=== PATIENT | female | born 1985 | race Caucasian/White ===

== ENCOUNTER 2019-05-25 07:11 | Day surgery (SDC) | payer OTHER ==
[~2019-05-25 07:11] MED LIST: SOD CHLORIDE 0.9% 1,000 ML IV
[2019-05-25] MEDS ORDERED: FENTAnyl 50 MCG/ML VIAL (08:29)
[2019-05-25] MEDS ORDERED: PROPOFOL 20 ML (08:29)
[2019-05-25] MEDS ORDERED: LIDOCAINE 2% (SDV) 5 ML INJ (08:29)
[2019-05-25] MEDS ORDERED: CEFAZOLIN 1 GM INJ (08:29)
[2019-05-25] MEDS ORDERED: MIDAZOLAM 1 MG/ML 2 ML INJ (08:29)
[2019-05-25] MEDS ORDERED: SUCCINYLCHOLINE CHLORIDE 100 MG/5 ML SYG IV (08:29)
[2019-05-25] MEDS ORDERED: HYDROmorphONE 1 MG/5 ML IV SYRINGE IV ×3 (08:30)
[2019-05-25] MEDS ORDERED: ONDANSETRON 4 MG INJ IV (08:30)
[2019-05-25] MEDS ORDERED: OXYCODONE/ACETAMINOPHEN (5/325) TAB PO ×2 (08:30)
[2019-05-25] MEDS: CEFAZOLIN 2 GM/50 ML (PMX) 50 ML IVPB (09:15)
[2019-05-25] MEDS ORDERED: METOCLOPRAMIDE 10 MG INJ (09:24)
[2019-05-25] MEDS ORDERED: DEXAMETHASONE 4 MG/ML 5 ML INJ (09:24)
[2019-05-25] MEDS ORDERED: FAMOTIDINE 20 MG INJ (09:24)
[2019-05-25] MEDS ORDERED: ONDANSETRON 4 MG INJ (09:24)
[2019-05-25] MEDS: BUPIVACAINE 0.5%/EPI (SDV) 30 ML INJ (10:00)
[2019-05-25] MEDS: LACTATED RINGER'S 1,000 ML IV (10:15)
[2019-05-25] MEDS: MEPERIDINE 25 MG INJ IV (10:17)
[2019-05-25] MEDS ORDERED: ACETAMINOPHEN 325 MG TAB PO (10:30)
[2019-05-25] MEDS: SOD CHLORIDE 0.9% 500 ML IV (11:24)
[2019-05-25] MEDS: EPHEDrine 25 MG/5 ML SYG IV (11:25)
== END 2019-05-25 12:44 | disposition home or self-care (01) ==
LOC: SDS 07:11
DX: D21.21 Benign neoplasm of connective and other soft tissue of right lower limb, including hip (principal)
CPT/HCPCS: 27618; 88307; 88341; 88342